=== PATIENT | male | born 1960 | race Caucasian/White ===

== ENCOUNTER 2024-05-28 23:04 | Emergency (ER) | payer OTHER ==
[~2024-05-28] VITALS: Ht 182.9 cm; Wt 90.7 kg
[2024-05-28] MEDS ORDERED: ROSU40TA23 PO (23:49)
[2024-05-28] MEDS ORDERED: AMPH20TA3 PO (23:49)
[2024-05-28] MEDS ORDERED: LOSA50TA39 PO (23:49)
[2024-05-28] MEDS ORDERED: CARV3.122 PO (23:49)
[2024-05-28] MEDS ORDERED: METF-440 PO (23:49)
[2024-05-28] MEDS ORDERED: ASPI81TA31 PO (23:49)
[2024-05-28 23:52] LABS: BASOPHILS # (AUTO) 0.1 K/UL (0.0-0.2); BASOPHILS % (AUTO) 0.8 % (0.0-2.0); EOSINOPHILS # (AUTO) 0.1 K/uL (0.0-0.7); EOSINOPHILS % (AUTO) 1.1 % (0.0-7.0); HEMATOCRIT 43.4 % (36.7-47.1); LYMPHOCYTES % (AUTO) 26.8 % (20.5-51.5); MEAN CORPUSCULAR HEMOGLOBIN 29.3 uug (23.8-33.4); MEAN CORPUSCULAR HGB CONC 32 g/dL (32.5-36.3); MEAN CORPUSCULAR VOLUME 90.7 fL (73.0-96.2); MONOCYTES # (AUTO) 0.5 K/uL (0.1-1.30); MONOCYTES % (AUTO) 7.2 % (0.0-11.0); NEUTROPHILS # (AUTO) 4.9 K/uL (1.8-8.9); NEUTROPHILS % (AUTO) 64.1 % (38.5-71.5); PLATELET COUNT (AUTO) 277 K/uL (152-348); RED BLOOD CELL COUNT(AUTO) 4.78 MIL/uL (4.06-5.63); RED CELL DISTRIBUTION WIDTH 13.2 % (12.1-16.2); WHITE BLOOD COUNT (AUTO) 7.6 K/uL (3.6-10.2)
[2024-05-28 23:54] LABS: DIFFERENTIAL COMMENT 1
[2024-05-29] LABS: CALCIUM 8.8 mg/dL (8.5-10.1); CARBON DIOXIDE 28 mmol/L (21-32); CHLORIDE 102 mmol/L (98-107); CREATININE 0.8 mg/dL (0.6-1.3); GLUCOSE 117 mg/dL (74-106); SODIUM SERUM 139 mmol/L (136-145); UREA NITROGEN, BLOOD 17 mg/dL (7-18)
[2024-05-29 00:09] LABS: ALANINE AMINOTRANSFERASE 26 U/L (16-63); ALBUMIN 3.5 g/dL (3.4-5.0); ALKALINE PHOSPHATASE 61 U/L (50-136); ASPARTATE AMINOTRANSFERASE 17 U/L (15-37); BILIRUBIN,DIRECT 0.2 mg/dL (0.0-0.2); BILIRUBIN,TOTAL 0.5 mg/dL (0.2-1.0); TOTAL PROTEIN, SERUM 7.1 g/dL (6.4-8.2)
[2024-05-29] MEDS ORDERED: CLOPIDOGREL 75 MG TABLET ONE (00:51)
[2024-05-29] MEDS ORDERED: ASPIRIN 325 MG TABLET ONE (00:51)
[2024-05-29] MEDS: ASPIRIN 81 MG TAB.CHEW PO ONE (00:53)
[2024-05-29] MEDS: CLOPIDOGREL 75 MG TABLET PO ONE (00:53)
[2024-05-29] MEDS ORDERED: IV NORMAL SALINE 250 ML IV ONE (01:43)
[2024-05-29] MEDS ORDERED: SWABABLE VALVE TRANSFER SET EA MC ONE (01:43)
[2024-05-29] MEDS ORDERED: IOHEXOL 350 100 ML INFUS..BTL ONE (01:43)
[2024-05-29] MEDS ORDERED: ENOXAPARIN SODIUM 100 MG/ML DISP.SYRIN SQ ONE (04:15)
[2024-05-29] MEDS: ENOXAPARIN SODIUM 100 MG/ML DISP.SYRIN SQ ONE (04:23)
[2024-05-29 08:51] VITALS: O2SAT 95
== END 2024-05-29 08:54 | disposition short-term general hospital (02) ==
LOC: ER 23:08
DX: I21.4 Non-ST elevation (NSTEMI) myocardial infarction (principal); R07.89 Other chest pain; E78.5 Hyperlipidemia, unspecified; Z79.82 Long term (current) use of aspirin; Z79.899 Other long term (current) drug therapy
CPT/HCPCS: 99291; 71045; 80076; 80048; 85025; 85730; 84484 ×2; 36415 ×2; 93005; 71275; 96372; J1650; Q9967; A4606; A4663